=== PATIENT | female | born 1980 | race Caucasian/White ===

== ENCOUNTER 2017-02-04 09:32 | Emergency (ER) | payer OTHER ==
[~2017-02-04] VITALS: Ht 175.3 cm; Wt 90.7 kg
[~2017-02-04 09:32] MED LIST: ACETAMINOPHEN-1 EAC1 PO; AMBIEN 5 MG TABL5 M1; AMBIEN 5 MG TABL5 M1 PO; BENTYL 20 MG TA20 M1 PO; CATAPRES0.2 M1 PO; CELEXA20 MG PO; CLONAZEPAM 0.50.5 M1 PO; CLONIDINE HCL0.3 M3 PO; COLACE100 MG PO; IBUPROFEN 200200 M1; LEXAPRO 10 MG T10 M2 PO; LEXAPRO20 MG PO; LINZESS290 MCG PO; LUNESTA3 MG PO; NEURONTIN 300300 M1 PO; NORCO 5-325 TA1 EACH PO; NORETHIN-ESTRA1 EAC1 PO; ONDANSETRON HCL4 M2 PO; PERCOCET 5-3251 EACH PO; PROPRANOLOL 1010 MG PO; YAZ 28 TABLET1 EACH PO; ZOFRAN ODT4 MG PO
[2017-02-04 09:47] LABS: URINE BILIRUBIN 1+ (Negative); URINE BLOOD NEGATIVE (Negative); URINE COLOR YELLOW; URINE GLUCOSE-RANDOM* NEGATIVE (Negative); URINE KETONES TRACE (Negative); URINE NITRITE NEGATIVE (Negative); URINE PROTEIN (DIPSTICK) TRACE (Negative); URINE SPECIFIC GRAVITY >= 1.030 (1.003-1.035); URINE UROBILINOGEN 0.2 E.U./dl (0.2-1.0)
[2017-02-04 09:50] LABS: ICTOTEST (BILI CONFIRMATORY) Negative (Negative)
[2017-02-04] MEDS ORDERED: PROGESTERONE200 MG PO (09:52)
[2017-02-04 10:02] LABS: ABSOLUTE NEUTROPHILS 5.4 thou/uL (1.4-8.2); BASOPHILS 0.9 % (0.0-2.0); EOSINOPHILS 3.1 % (0.0-3.0); HEMATOCRIT 38.7 % (37.0-47.0); HEMOGLOBIN 13.2 gm/dL (12.0-15.0); LYMPHOCYTES 30.8 % (24.0-44.0); MCH 31.5 pg (26.0-34.0); MCHC 34.2 g/dL (28.0-37.0); PLATELET COUNT 272 thou/uL (150-400); POLYS 58.2 % (36.0-66.0); RBC 4.21 mil/uL (4.20-5.00); RDW 13.1 % (10.5-14.5); WBC 9.2 thou/uL (4.0-11.0)
[2017-02-04 10:05] LABS: MANUAL DIFF NO
[2017-02-04 10:19] LABS: ALBUMIN 3.6 g/dL (3.4-5.0); CALCIUM 9.2 mg/dL (8.5-10.1); CREATININE 1.2 mg/dL (0.6-1.0); POTASSIUM 3.9 mmol/L (3.5-5.1); TOTAL BILIRUBIN 0.3 mg/dL (<0.1-1.0); TOTAL PROTEIN 7.4 g/dL (6.4-8.2)
[2017-02-04 11:22] VITALS: BP 119/66
[2017-02-04] MEDS ORDERED: MOBIC15 MG PO (11:23)
[2017-02-04] MEDS ORDERED: NORCO 5-325 TA1 EACH PO (11:30)
== END 2017-02-04 11:25 | disposition home or self-care (01) ==
LOC: ER 09:32
PROVIDERS: Physician Assistant
DX: D25.9 Leiomyoma of uterus, unspecified (principal); N83.202 Unspecified ovarian cyst, left side; N80.9 Endometriosis, unspecified; Z90.49 Acquired absence of other specified parts of digestive tract; Z88.6 Allergy status to analgesic agent; Z88.8 Allergy status to other drugs, medicaments and biological substances

== ENCOUNTER 2017-02-20 12:24 | Emergency (ER) | payer OTHER ==
[~2017-02-20] VITALS: Ht 175.3 cm; Wt 90.7 kg
[~2017-02-20 12:24] MED LIST changes: +MOBIC15 MG PO; +PROGESTERONE200 MG PO
[2017-02-20] MEDS ORDERED: ATIVAN0.5 MG PO (12:34)
[2017-02-20] MEDS ORDERED: VITAMIN D 5050000 I1 PO (12:36)
[2017-02-20] MEDS ORDERED: LEXAPRO20 MG PO (12:36)
[2017-02-20] MEDS ORDERED: NORCO 5-325 TA1 EACH PO (13:23)
[2017-02-20] MEDS ORDERED: SENOKOT-S1 TA1 PO (13:24)
[2017-02-20 14:00] VITALS: BP 122/74
== END 2017-02-20 14:04 | disposition home or self-care (01) ==
LOC: ER 12:24
DX: S62.635A Displaced fracture of distal phalanx of left ring finger, initial encounter for closed fracture (principal); Z88.8 Allergy status to other drugs, medicaments and biological substances; Z88.6 Allergy status to analgesic agent; W23.0XXA Caught, crushed, jammed, or pinched between moving objects, initial encounter; Y93.02 Activity, running; Y99.8 Other external cause status; Y92.89 Other specified places as the place of occurrence of the external cause

== ENCOUNTER 2018-01-01 17:02 | Emergency (ER) | payer OTHER ==
[~2018-01-01] VITALS: Ht 175.3 cm; Wt 79.4 kg
[~2018-01-01 17:02] MED LIST changes: +ATIVAN0.5 MG PO; +SENOKOT-S1 TA1 PO; +VITAMIN D 5050000 I1 PO
[2018-01-01] MEDS ORDERED: TOPROL XL25 MG PO (17:49)
[2018-01-01] MEDS ORDERED: ZOLOFT50 MG PO (17:49)
== END 2018-01-01 18:13 | disposition home or self-care (01) ==
LOC: ER 17:02
DX: R19.7 Diarrhea, unspecified (principal); R10.2 Pelvic and perineal pain; R11.2 Nausea with vomiting, unspecified

== ENCOUNTER 2018-10-21 04:49 | Emergency (ER) | payer BC, OTHER ==
[~2018-10-21] VITALS: Ht 175.3 cm; Wt 81.7 kg
[~2018-10-21 04:49] MED LIST changes: +TOPROL XL25 MG PO; +ZOLOFT50 MG PO
[2018-10-21] MEDS ORDERED: EFFEXOR 5050 MG/1 T1 PO (05:30)
[2018-10-21] MEDS ORDERED: XANAX1 MG PO (05:31)
[2018-10-21] MEDS ORDERED: SENNA-DOCUSATE1 EAC1 PO (05:43)
[2018-10-21] MEDS ORDERED: SSD CREAM 1% 5050 GM TOP (05:43)
[2018-10-21] MEDS ORDERED: NORCO 5-325 TA1 EACH PO (05:43)
[2018-10-21] MEDS ORDERED: CLONIDINE0.1 PO (05:43)
[2018-10-21 06:16] VITALS: BP 147/87
== END 2018-10-21 06:27 | disposition home or self-care (01) ==
LOC: ER 04:49
DX: T24.212A Burn of second degree of left thigh, initial encounter (principal); T31.0 Burns involving less than 10% of body surface; Z88.8 Allergy status to other drugs, medicaments and biological substances; Z88.6 Allergy status to analgesic agent; Z90.49 Acquired absence of other specified parts of digestive tract; X16.XXXA Contact with hot heating appliances, radiators and pipes, initial encounter; Y92.89 Other specified places as the place of occurrence of the external cause; Y93.89 Activity, other specified; Y99.8 Other external cause status

== ENCOUNTER 2018-11-18 16:47 | Emergency (ER) | payer BC, OTHER ==
[~2018-11-18] VITALS: Ht 175.3 cm; Wt 83.9 kg
[~2018-11-18 16:47] MED LIST changes: +CLONIDINE0.1 PO; +EFFEXOR 5050 MG/1 T1 PO; +SENNA-DOCUSATE1 EAC1 PO; +SSD CREAM 1% 5050 GM TOP; +XANAX1 MG PO
[2018-11-18] MEDS ORDERED: TRAZODONE HCL100 MG PO (17:03)
[2018-11-18] MEDS ORDERED: LEXAPRO 10 MG T10 M2 PO (17:04)
[2018-11-18] MEDS ORDERED: NEURONTIN600 MG PO (17:06)
[2018-11-18 17:35] LABS: ABSOLUTE NEUTROPHILS 4.4 thou/uL (1.4-8.2); ANION GAP 6 mmol/L (7-16); BASOPHILS 1.1 % (0.0-2.0); BUN 14 mg/dL (7-18); CALCIUM 9.4 mg/dL (8.5-10.1); CHLORIDE 103 mmol/L (98-107); CO2 31 mmol/L (21-32); CREATININE 0.9 mg/dL (0.6-1.0); EOSINOPHILS 3.3 % (0.0-3.0); GLUCOSE 92 mg/dL (74-106); HEMATOCRIT 33.9 % (37.0-47.0); HEMOGLOBIN 11.2 gm/dL (12.0-15.0); LYMPHOCYTES 24.3 % (24.0-44.0); MCH 26.9 pg (26.0-34.0); MCV 81.7 fL (80.0-100.0); MONOCYTES 6.7 % (1.0-8.0); PLATELET COUNT 291 thou/uL (150-400); POLYS 64.6 % (36.0-66.0); POTASSIUM 4.1 mmol/L (3.5-5.1); RBC 4.15 mil/uL (4.20-5.00); RDW 15.5 % (10.5-14.5); SODIUM 140 mmol/L (136-145); WBC 6.8 thou/uL (4.0-11.0)
[2018-11-18 17:53] LABS: URINE BILIRUBIN NEGATIVE (Negative); URINE BLOOD NEGATIVE (Negative); URINE CLARITY CLEAR; URINE COLOR YELLOW; URINE GLUCOSE-RANDOM* NEGATIVE (Negative); URINE KETONES NEGATIVE (Negative); URINE LEUKOCYTES-REFLEX NEGATIVE (Negative); URINE NITRITE-REFLEX NEGATIVE (Negative); URINE PROTEIN (DIPSTICK) NEGATIVE (Negative); URINE UROBILINOGEN 0.2 E.U./dl (0.2-1.0)
[2018-11-18 17:58] LABS: ALBUMIN 3.7 g/dL (3.4-5.0); LIPASE 243 U/L (73-393); SGOT 21 U/L (15-37); SGPT 25 U/L (30-65); TOTAL BILIRUBIN < 0.1 mg/dL (<0.1-1.0); TOTAL PROTEIN 7.7 g/dL (6.4-8.2); TROPONIN-I <0.06 ng/mL (<0.06)
[2018-11-18] MEDS ORDERED: ONDANSETRON HCL4 M2 PO (21:11)
[2018-11-18] MEDS ORDERED: NORCO 10-325 T1 EACH PO (21:11)
[2018-11-18 21:28] VITALS: BP 128/71
--- NOTE | 2018-11-19 12:00 | EKG ---
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1980 Requested By: Rayray Jimenez Order Number: [id number] MD: Corky Acevedo Measurements Intervals [place] Rate: 76 P: 23 OK: 140 QRS: 53 QRSD: 87 T: 38 QT: 391 QTc: 440 Interpretive Statements Sinus rhythm No significant abnormality Compared to ECG 07/06/2016 20:28:36 Ventricular premature complex(es) no longer present Electronically Signed On 11-19-2018 12:00:30 SOFTWARE DESIGN ENGINEER by Croky Acevedo [email or web address] <ELECTRONICALLY SIGNED> By: Corky Acevedo MD, [facility] 11/19/18 1200 1730 1730 Corky Acevedo MD, FACC /EPI
== END 2018-11-18 21:28 | disposition home or self-care (01) ==
LOC: ER 16:47
PROVIDERS: Physician Assistant
DX: K83.4 Spasm of sphincter of Oddi (principal); Z88.6 Allergy status to analgesic agent; Z88.8 Allergy status to other drugs, medicaments and biological substances; Z90.49 Acquired absence of other specified parts of digestive tract

== ENCOUNTER 2018-11-20 14:41 | Emergency (ER) | payer BC, OTHER ==
[~2018-11-20] VITALS: Ht 175.3 cm; Wt 83.9 kg
[~2018-11-20 14:41] MED LIST changes: +NEURONTIN600 MG PO; +NORCO 10-325 T1 EACH PO; +TRAZODONE HCL100 MG PO
[2018-11-20 15:44] LABS: ABSOLUTE NEUTROPHILS 5.1 thou/uL (1.4-8.2); BASOPHILS 0.9 % (0.0-2.0); EOSINOPHILS 3.5 % (0.0-3.0); HEMATOCRIT 33.7 % (37.0-47.0); HEMOGLOBIN 11.3 gm/dL (12.0-15.0); LYMPHOCYTES 21.7 % (24.0-44.0); MCH 27.2 pg (26.0-34.0); MCHC 33.5 g/dL (28.0-37.0); MCV 81.3 fL (80.0-100.0); MONOCYTES 3.7 % (1.0-8.0); PLATELET COUNT 255 thou/uL (150-400); POLYS 70.2 % (36.0-66.0); RBC 4.14 mil/uL (4.20-5.00); RDW 15.5 % (10.5-14.5); WBC 7.2 thou/uL (4.0-11.0)
[2018-11-20 15:50] LABS: ANION GAP 8 mmol/L (7-16); BUN 16 mg/dL (7-18); CALCIUM 9.3 mg/dL (8.5-10.1); CHLORIDE 103 mmol/L (98-107); CO2 28 mmol/L (21-32); GLUCOSE 98 mg/dL (74-106); POTASSIUM 4.4 mmol/L (3.5-5.1); SODIUM 139 mmol/L (136-145)
[2018-11-20 15:59] LABS: ALBUMIN 3.6 g/dL (3.4-5.0); LIPASE 163 U/L (73-393); SGOT 19 U/L (15-37); SGPT 26 U/L (30-65); TOTAL BILIRUBIN 0.1 mg/dL (<0.1-1.0); TOTAL PROTEIN 7.4 g/dL (6.4-8.2); TROPONIN-I <0.06 ng/mL (<0.06)
[2018-11-20 16:36] LABS: URINE BILIRUBIN NEGATIVE (Negative); URINE BLOOD NEGATIVE (Negative); URINE CLARITY CLEAR; URINE COLOR YELLOW; URINE GLUCOSE-RANDOM* NEGATIVE (Negative); URINE KETONES NEGATIVE (Negative); URINE LEUKOCYTES-REFLEX NEGATIVE (Negative); URINE NITRITE-REFLEX NEGATIVE (Negative); URINE PROTEIN (DIPSTICK) NEGATIVE (Negative); URINE UROBILINOGEN 0.2 E.U./dl (0.2-1.0)
[2018-11-20] MEDS ORDERED: ONDANSETRON HCL4 M2 PO (16:56)
[2018-11-20] MEDS ORDERED: NORCO 5-325 TA1 EACH PO ×2 (16:56→17:57)
[2018-11-20 18:02] VITALS: BP 118/58
== END 2018-11-20 18:53 | disposition home or self-care (01) ==
LOC: ER 14:41
PROVIDERS: Nurse Practitioner Family
DX: R10.11 Right upper quadrant pain (principal); R11.2 Nausea with vomiting, unspecified; Z90.49 Acquired absence of other specified parts of digestive tract; Z88.8 Allergy status to other drugs, medicaments and biological substances

== ENCOUNTER 2018-11-26 15:47 | Emergency (ER) | payer OTHER, BC ==
[~2018-11-26] VITALS: Ht 175.3 cm; Wt 88.5 kg
[2018-11-26 16:50] LABS: ABSOLUTE NEUTROPHILS 5.3 thou/uL (1.4-8.2); BASOPHILS 0.7 % (0.0-2.0); EOSINOPHILS 0.3 % (0.0-3.0); HEMATOCRIT 33.2 % (37.0-47.0); HEMOGLOBIN 11.1 gm/dL (12.0-15.0); LYMPHOCYTES 15.3 % (24.0-44.0); MCH 26.4 pg (26.0-34.0); MCHC 33.3 g/dL (28.0-37.0); MCV 79.2 fL (80.0-100.0); MONOCYTES 5.4 % (1.0-8.0); PLATELET COUNT 273 thou/uL (150-400); POLYS 78.3 % (36.0-66.0); RBC 4.19 mil/uL (4.20-5.00); RDW 15.4 % (10.5-14.5); WBC 6.8 thou/uL (4.0-11.0)
[2018-11-26 17:00] LABS: CALCIUM 9.1 mg/dL (8.5-10.1)
[2018-11-26 17:06] LABS: TOTAL BILIRUBIN 0.2 mg/dL (<0.1-1.0)
[2018-11-26 18:00] LABS: URINE BILIRUBIN NEGATIVE (Negative); URINE BLOOD TRACE (Negative); URINE CLARITY CLEAR; URINE COLOR YELLOW; URINE GLUCOSE-RANDOM* NEGATIVE (Negative); URINE KETONES NEGATIVE (Negative); URINE NITRITE-REFLEX NEGATIVE (Negative); URINE PROTEIN (DIPSTICK) NEGATIVE (Negative); URINE SPECIFIC GRAVITY < 1.005 (1.005-1.035); URINE UROBILINOGEN 0.2 E.U./dl (0.2-1.0)
[2018-11-26 18:01] LABS: URINE LEUKOCYTES-REFLEX NEGATIVE (Negative)
[2018-11-26 19:00] VITALS: BP 135/74
== END 2018-11-26 19:05 | disposition home or self-care (01) ==
LOC: ER 15:47
PROVIDERS: Emergency Medicine
DX: R07.81 Pleurodynia (principal); M25.512 Pain in left shoulder; K52.9 Noninfective gastroenteritis and colitis, unspecified; F41.9 Anxiety disorder, unspecified; Z90.49 Acquired absence of other specified parts of digestive tract; Z88.8 Allergy status to other drugs, medicaments and biological substances; Z88.6 Allergy status to analgesic agent

== ENCOUNTER 2018-12-09 13:57 | Emergency (ER) | payer BC ==
[~2018-12-09] VITALS: Ht 175.3 cm; Wt 83.9 kg
[2018-12-09 14:50] LABS: BASOPHILS 0.2 % (0.0-2.0); EOSINOPHILS 3.4 % (0.0-3.0); HEMATOCRIT 34.6 % (37.0-47.0); HEMOGLOBIN 11.1 gm/dL (12.0-15.0); LYMPHOCYTES 33.1 % (24.0-44.0); MCH 26.1 pg (26.0-34.0); MCHC 32.1 g/dL (28.0-37.0); MCV 81.3 fL (80.0-100.0); MONOCYTES 6.9 % (1.0-8.0); PLATELET COUNT 283 thou/uL (150-400); POLYS 56.4 % (36.0-66.0); RBC 4.26 mil/uL (4.20-5.00); WBC 5.4 thou/uL (4.0-11.0)
[2018-12-09 14:51] LABS: URINE BILIRUBIN NEGATIVE (Negative); URINE BLOOD NEGATIVE (Negative); URINE CLARITY CLEAR; URINE COLOR YELLOW; URINE GLUCOSE-RANDOM* NEGATIVE (Negative); URINE KETONES NEGATIVE (Negative); URINE LEUKOCYTES NEGATIVE (Negative); URINE NITRITE NEGATIVE (Negative); URINE PROTEIN (DIPSTICK) NEGATIVE (Negative); URINE SPECIFIC GRAVITY 1.025 (1.005-1.035); URINE UROBILINOGEN 0.2 E.U./dl (0.2-1.0)
[2018-12-09] MEDS ORDERED: OXAZEPAM 15 MG15 M1 PO (15:04)
[2018-12-09 15:05] LABS: ALBUMIN 3.6 g/dL (3.4-5.0); BUN 11 mg/dL (7-18); CALCIUM 9.1 mg/dL (8.5-10.1); CO2 28 mmol/L (21-32); CREATININE 0.9 mg/dL (0.6-1.0); DIRECT BILIRUBIN < 0.1 mg/dL (<0.1-0.3); GLUCOSE 79 mg/dL (74-106); LIPASE 107 U/L (73-393); SGOT 22 U/L (15-37); SGPT 47 U/L (30-65); TOTAL BILIRUBIN 0.1 mg/dL (<0.1-1.0); TOTAL PROTEIN 7.4 g/dL (6.4-8.2)
[2018-12-09 15:44] LABS: ANION GAP 9 mmol/L (7-16); CHLORIDE 106 mmol/L (98-107); SODIUM 143 mmol/L (136-145)
[2018-12-09] MEDS ORDERED: NORCO 5-325 TA1 EACH PO (17:41)
[2018-12-09 17:56] VITALS: BP 124/62
== END 2018-12-09 17:56 | disposition home or self-care (01) ==
LOC: ER 13:57
PROVIDERS: Emergency Medicine
DX: R10.11 Right upper quadrant pain (principal); R10.13 Epigastric pain; R11.2 Nausea with vomiting, unspecified; Z90.49 Acquired absence of other specified parts of digestive tract; Z88.8 Allergy status to other drugs, medicaments and biological substances

== ENCOUNTER 2018-12-13 10:40 | Emergency (ER) | payer BC ==
[~2018-12-13] VITALS: Ht 175.3 cm; Wt 86.2 kg
[~2018-12-13 10:40] MED LIST changes: +OXAZEPAM 15 MG15 M1 PO
[2018-12-13 11:28] LABS: ABSOLUTE NEUTROPHILS 4.4 thou/uL (1.4-8.2); BASOPHILS 1.3 % (0.0-2.0); EOSINOPHILS 3.7 % (0.0-3.0); HEMATOCRIT 34.3 % (37.0-47.0); HEMOGLOBIN 11.3 gm/dL (12.0-15.0); LYMPHOCYTES 24.1 % (24.0-44.0); MCH 25.9 pg (26.0-34.0); MCHC 32.9 g/dL (28.0-37.0); MCV 78.9 fL (80.0-100.0); PLATELET COUNT 299 thou/uL (150-400); POLYS 64.9 % (36.0-66.0); RBC 4.34 mil/uL (4.20-5.00); RDW 15.7 % (10.5-14.5); WBC 6.8 thou/uL (4.0-11.0)
[2018-12-13 11:32] LABS: CALCIUM 9.1 mg/dL (8.5-10.1)
[2018-12-13 11:37] LABS: ALBUMIN 3.8 g/dL (3.4-5.0); TOTAL BILIRUBIN 0.2 mg/dL (<0.1-1.0); TOTAL PROTEIN 7.5 g/dL (6.4-8.2)
[2018-12-13 11:39] LABS: URINE BILIRUBIN NEGATIVE (Negative); URINE BLOOD NEGATIVE (Negative); URINE CLARITY CLEAR; URINE COLOR YELLOW; URINE GLUCOSE-RANDOM* NEGATIVE (Negative); URINE KETONES NEGATIVE (Negative); URINE LEUKOCYTES-REFLEX NEGATIVE (Negative); URINE NITRITE-REFLEX NEGATIVE (Negative); URINE PROTEIN (DIPSTICK) NEGATIVE (Negative); URINE SPECIFIC GRAVITY 1.025 (1.005-1.035); URINE UROBILINOGEN 0.2 E.U./dl (0.2-1.0)
[2018-12-13 11:57] VITALS: BP 128/84
== END 2018-12-13 12:22 | disposition home or self-care (01) ==
LOC: ER 10:40
PROVIDERS: Emergency Medicine
DX: R10.11 Right upper quadrant pain (principal); R10.31 Right lower quadrant pain; G89.29 Other chronic pain; R11.2 Nausea with vomiting, unspecified; Z88.8 Allergy status to other drugs, medicaments and biological substances; Z88.6 Allergy status to analgesic agent; Z90.49 Acquired absence of other specified parts of digestive tract; Z90.710 Acquired absence of both cervix and uterus

== ENCOUNTER 2019-01-16 13:30 | Emergency (ER) | payer BC, OTHER ==
[~2019-01-16] VITALS: Ht 175.3 cm; Wt 86.2 kg
[2019-01-16] MEDS ORDERED: AMBIEN 5 MG TABL5 M1 PO (13:45)
[2019-01-16 14:04] LABS: ABSOLUTE NEUTROPHILS 2.8 thou/uL (1.4-8.2); BASOPHILS 0.3 % (0.0-2.0); EOSINOPHILS 3.3 % (0.0-3.0); HEMATOCRIT 34.5 % (37.0-47.0); HEMOGLOBIN 11.2 gm/dL (12.0-15.0); LYMPHOCYTES 31.6 % (24.0-44.0); MCH 25.4 pg (26.0-34.0); MCHC 32.4 g/dL (28.0-37.0); MCV 78.2 fL (80.0-100.0); MONOCYTES 9.8 % (1.0-8.0); PLATELET COUNT 340 thou/uL (150-400); RBC 4.41 mil/uL (4.20-5.00); RDW 16.1 % (10.5-14.5)
[2019-01-16 14:11] LABS: CALCIUM 8.9 mg/dL (8.5-10.1); CREATININE 0.8 mg/dL (0.6-1.0); POTASSIUM 3.7 mmol/L (3.5-5.1)
[2019-01-16 14:17] LABS: ALBUMIN 3.9 g/dL (3.4-5.0); TOTAL BILIRUBIN 0.2 mg/dL (<0.1-1.0); TOTAL PROTEIN 7.8 g/dL (6.4-8.2)
[2019-01-16 15:26] LABS: URINE BILIRUBIN NEGATIVE (Negative); URINE BLOOD NEGATIVE (Negative); URINE CLARITY SL CLOUDY; URINE COLOR YELLOW; URINE GLUCOSE-RANDOM* NEGATIVE (Negative); URINE KETONES NEGATIVE (Negative); URINE LEUKOCYTES-REFLEX NEGATIVE (Negative); URINE NITRITE-REFLEX NEGATIVE (Negative); URINE PROTEIN (DIPSTICK) NEGATIVE (Negative); URINE UROBILINOGEN 0.2 E.U./dl (0.2-1.0)
[2019-01-16] MEDS ORDERED: PHENERGAN 25 MG25 M1 PO (16:27)
[2019-01-16] MEDS ORDERED: HYDROCODONE-AP1 EAC6 PO (16:27)
[2019-01-16 16:50] VITALS: BP 132/84
== END 2019-01-16 16:51 | disposition home or self-care (01) ==
LOC: ER 13:30
PROVIDERS: Physician Assistant
DX: R10.31 Right lower quadrant pain (principal); R11.2 Nausea with vomiting, unspecified; R50.9 Fever, unspecified; Z90.49 Acquired absence of other specified parts of digestive tract; Z88.5 Allergy status to narcotic agent; Z88.6 Allergy status to analgesic agent; Z88.8 Allergy status to other drugs, medicaments and biological substances

== ENCOUNTER 2019-09-03 11:31 | Emergency (ER) | payer BC ==
[~2019-09-03] VITALS: Ht 177.8 cm; Wt 102.1 kg
[~2019-09-03 11:31] MED LIST changes: +HYDROCODONE-AP1 EAC6 PO; +PHENERGAN 25 MG25 M1 PO
[2019-09-03 12:40] LABS: ABSOLUTE NEUTROPHILS 4.7 thou/uL (1.4-8.2); BASOPHILS 1.3 % (0.0-2.0); EOSINOPHILS 6.1 % (0.0-3.0); HEMATOCRIT 42.7 % (37.0-47.0); HEMOGLOBIN 14.1 gm/dL (12.0-15.0); MCH 29.4 pg (26.0-34.0); MCHC 33.1 g/dL (28.0-37.0); MONOCYTES 6.6 % (1.0-8.0); PLATELET COUNT 244 thou/uL (150-400); RBC 4.79 mil/uL (4.20-5.00); RDW 12.6 % (10.5-14.5); WBC 9.5 thou/uL (4.0-11.0)
[2019-09-03 12:42] LABS: URINE BILIRUBIN NEGATIVE (Negative); URINE BLOOD 1+ (Negative); URINE CLARITY SL CLOUDY; URINE COLOR YELLOW; URINE GLUCOSE-RANDOM* NEGATIVE (Negative); URINE KETONES NEGATIVE (Negative); URINE LEUKOCYTES-REFLEX NEGATIVE (Negative); URINE NITRITE-REFLEX NEGATIVE (Negative); URINE PROTEIN (DIPSTICK) NEGATIVE (Negative); URINE UROBILINOGEN 0.2 E.U./dl (0.2-1.0)
[2019-09-03 12:43] LABS: CALCIUM 9.7 mg/dL (8.5-10.1)
[2019-09-03 12:44] LABS: POTASSIUM 4.2 mmol/L (3.5-5.1)
[2019-09-03 12:49] LABS: ALBUMIN 3.7 g/dL (3.4-5.0); TOTAL BILIRUBIN 0.5 mg/dL (<0.1-1.0)
[2019-09-03 13:00] LABS: CASTS None Seen /LPF (None Seen); CRYSTALS None Seen /LPF (None Seen); SQUAMOUS >10 Many /LPF (0-3)
[2019-09-03 13:01] LABS: BACTERIA-REFLEX 1-9 Few /HPF (None Seen); URINE RBC 0-2 Rare /HPF (0-2); URINE WBC-REFLEX 0-5 Rare /HPF (0-5)
[2019-09-03 14:20] VITALS: BP 111/65
== END 2019-09-03 14:41 | disposition home or self-care (01) ==
LOC: ER 11:31
PROVIDERS: Physician Assistant
DX: R10.2 Pelvic and perineal pain (principal); R11.2 Nausea with vomiting, unspecified; R10.31 Right lower quadrant pain; Z88.6 Allergy status to analgesic agent; Z88.8 Allergy status to other drugs, medicaments and biological substances; Z90.49 Acquired absence of other specified parts of digestive tract

== ENCOUNTER 2019-10-29 15:42 | Emergency (ER) | payer BC ==
[~2019-10-29] VITALS: Ht 175.3 cm; Wt 95.3 kg
[2019-10-29 16:16] LABS: URINE BILIRUBIN NEGATIVE (Negative); URINE BLOOD TRACE (Negative); URINE CLARITY CLEAR; URINE COLOR YELLOW; URINE GLUCOSE-RANDOM* NEGATIVE (Negative); URINE KETONES NEGATIVE (Negative); URINE LEUKOCYTES-REFLEX NEGATIVE (Negative); URINE NITRITE-REFLEX NEGATIVE (Negative); URINE PROTEIN (DIPSTICK) NEGATIVE (Negative); URINE UROBILINOGEN 0.2 E.U./dl (0.2-1.0)
[2019-10-29 16:16] LABS: ABSOLUTE NEUTROPHILS 4.9 thou/uL (1.4-8.2); BASOPHILS 1.4 % (0.0-2.0); EOSINOPHILS 3.4 % (0.0-3.0); HEMOGLOBIN 14.4 gm/dL (12.0-15.0); LYMPHOCYTES 24.6 % (24.0-44.0); MCH 29.5 pg (26.0-34.0); MCHC 33.5 g/dL (28.0-37.0); MCV 88.2 fL (80.0-100.0); MONOCYTES 5.6 % (1.0-8.0); PLATELET COUNT 282 thou/uL (150-400); RBC 4.87 mil/uL (4.20-5.00); RDW 12.9 % (10.5-14.5); WBC 7.5 thou/uL (4.0-11.0)
[2019-10-29 16:30] LABS: ANION GAP 9 mmol/L (7-16); BUN 13 mg/dL (7-18); CALCIUM 9.5 mg/dL (8.5-10.1); CHLORIDE 100 mmol/L (98-107); CO2 28 mmol/L (21-32); CREATININE 0.9 mg/dL (0.6-1.0); GLUCOSE 92 mg/dL (74-106); POTASSIUM 4.1 mmol/L (3.5-5.1); SODIUM 137 mmol/L (136-145)
[2019-10-29 16:36] LABS: ALBUMIN 4.3 g/dL (3.4-5.0); AMYLASE 44 U/L (25-115); DIRECT BILIRUBIN < 0.1 mg/dL (<0.1-0.2); LIPASE 63 U/L (73-393); SGOT 20 U/L (15-37); SGPT 30 U/L (30-65); TOTAL BILIRUBIN 0.3 mg/dL (<0.1-1.0); TOTAL PROTEIN 8.8 g/dL (6.4-8.2)
[2019-10-29 18:08] VITALS: BP 126/83
== END 2019-10-29 18:20 | disposition home or self-care (01) ==
LOC: ER 15:42
PROVIDERS: Emergency Medicine
DX: R10.31 Right lower quadrant pain (principal); Z88.6 Allergy status to analgesic agent; Z88.8 Allergy status to other drugs, medicaments and biological substances; Z90.49 Acquired absence of other specified parts of digestive tract